=== PATIENT | female | born 1965 | race Caucasian/White ===

== ENCOUNTER 2016-05-31 11:27 | Outpatient (CLI) | payer MEDICARE, OTHER ==
[2016-05-31 11:45] LABS: BASOPHILS % 0.5 (0.0-1.5); EOSINOPHILS % 2.8 % (0.0-6.8); LYMPHOCYTES # 2.8 # k/uL (0.6-4.0); MEAN CORPUSCULAR HEMOGLOBIN 32.9 pg (28.0-34.0); MONOCYTES # 0.4 # k/uL (0.0-0.9); MONOCYTES % 3.4 % (0.0-11.0); NEUTROPHILS # 7.1 # k/uL (1.4-7.7)
--- NOTE | 2016-05-31 15:14 | Diagnostic Imaging Report ---
[facility] [address] [facility].[address] 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 The left hilum is slightly enlarged. Calcified granulomas may be present. There is no confluent infiltrate or pleural effusion. Heart size is normal. IMPRESSION: Mild hyperinflation. Left hilar enlargement. Differential diagnosis includes pulmonary hypertension and mass/lymphadenopathy. Recommend comparison to previous radiographs. If none are available, consider contrast enhanced chest CT follow-up. Electronically signed on May 31, 2016 1:13:06 PM PRODUCTION WORKER by: Peter HELLER
[2016-05-31 21:49] LABS: TOTAL PROTEIN 6.6 g/dL (6.0-8.5)
== END 2016-05-31 11:35 ==
LOC: LAB 11:27
PROVIDERS: ATTEND Family Medicine
DX: Z51.81 Encounter for therapeutic drug level monitoring (principal); R05 Cough; R63.4 Abnormal weight loss; R06.09 Other forms of dyspnea
CPT/HCPCS: 36415; 71020; 80053; 85025

== ENCOUNTER 2016-06-28 15:15 | Emergency (ER) | payer MEDICARE, OTHER ==
[2016-06-28 16:28] VITALS: BP 102/76
--- NOTE | 2016-06-28 16:57 | ED Physician Documentation ---
Upper Respiratory Symptoms - HISTORIAN Historian: patient - HPI Stated Complaint: cough, congestion Chief Complaint: Cough/ Upper Respiratory Additional Information: cough, congestion Onset: days ago (1) Duration: sudden-Onset Context: denies: recent foreign travel, insect bite(s), tick(s), recent chemotherapy, multiple patients, same sx Severity: moderate Associated Symptoms: chills, runny nose, sinus drainage, productive cough Worsened by Deep Breath: Yes Further Comments: no - ROS CONST/EYES: denies: weakness, eye redness, eye itching CVS/RESP: other (cough) LYMPH: denies: leg swelling, rash, swollen glands, ankle swelling GI/: none NEURO/PSYCH: denies: fainting, dizziness, confusion, anxiety, depression MS/SKIN: muscle aches. denies: joint pain, rash - PAST HX Lung Disease: COPD PE Risk Factors: none Other History: other (anxiety, depression, hypothyroidism) Surgeries/Procedures: none Immunizations: referred to PCP Allergies/Adverse Reactions: Allergies Allergy/AdvReac Type Severity Reaction Status Date / Time chlorpromazine HCl AdvReac Intermediate Hives Verified 06/28/16 15:32 [From Thorazine] - SOCIAL HX Smoking History: cigarettes Alcohol Use: none Drug Use: none - FAMILY HX Family History: no significant history - VITAL SIGNS Vital Signs: Vital Signs Temp Pulse Resp BP Pulse Ox 98.9 F 97 H 18 102/76 91 L 06/28/16 16:10 06/28/16 16:10 06/28/16 16:10 06/28/16 16:10 06/28/16 16:10 - REVIEWED ASSESSMENTS Nursing Assessment Reviewed: Yes Vitals Reviewed: Yes Progress - Results/Orders Results/Orders: strep and flu a/b ordered - Progress Progress: pt. stable entire tiem in er Critical Care Note - Critical Care Note Total Time (mins): 0 ED Results Lab/Radiology - Lab Results Lab Results: strep and flu b neg, flu a pos - Radiology Radiology Impressions: none ordered - Orders Orders: ED Orders Category Date Time Status INFLUENZA A&B Routine Lab 06/28/16 15:40 Ordered Strep [GRP A STREP SCREEN] Routine Lab 06/28/16 Ordered Upper Respiratory Symptoms - EXAM General Appearance: alert, moderate distress EENT: eyes nml inspection, lids & conjunct. nml, PERRL, ear nml, pain over sinuses, frontal, maxillary, mucosal edema Neck: normal inspection, thyroid normal Respiratory: no resp. distress, breath sounds nml, no pain on inspiration Abdomen: non-tender, no organomegaly, nml bowel sounds, no distention CVS: reg rate & rhythm, heart sounds normal, equal pulses, no murmur, no gallop Skin: color nml, no rash Extremities: non-tender, normal range of motion, no evidence of injury, no edema Neuro/Psych: oriented x3, neuro intact, mood/affect nml Discharge Clincal Impression: Influenza A Referrals: Thomas Tinoco MD [Primary Care Provider] - 2 Days Comments: discharged with scripts for tamiflu, claritin-d, mucinex and tessalon perles Condition: Stable Disposition: 01 HOME, SELF-CARE Decision to Admit: NO Decision Time: 16:20
== END 2016-06-28 16:10 | disposition home or self-care (01) ==
LOC: ED 15:15
DX: J11.1 Influenza due to unidentified influenza virus with other respiratory manifestations (principal)
CPT/HCPCS: 87070; 87400; 87880; 99283

== ENCOUNTER 2016-09-22 19:31 | Emergency (ER) | payer MEDICARE, OTHER ==
[2016-09-22 19:42] VITALS: BP 106/48
--- NOTE | 2016-09-22 19:51 | ED Physician Documentation ---
General Adult - HISTORIAN Historian: patient - HPI Stated Complaint: Sore Throat x 1 Month Chief Complaint: General Adult Further Comments: yes (51 year old female patient presents with complaint of sore throat for 1 month. States she is suppose to see ENT, requesting medication to make sore throat and hoarness go away.) - ROS CONST: recent illness EYES/ENT: sore throat CVS/RESP: cough GI/: none MS/SKIN/LYMPH: none NEURO/PSYCH: denies: headache, difficulty with speech - PAST HX Past History: hypertension Other History: diabetes Type 2 (hypothroidism; COPD, GERD, chronic sore throat, ) Allergies/Adverse Reactions: Allergies Allergy/AdvReac Type Severity Reaction Status Date / Time chlorpromazine HCl AdvReac Intermediate Hives Verified 09/22/16 19:42 [From Thorazine] Home Medications: Ambulatory Orders Medication Instructions Recorded Albuterol Sulfate [Proair Hfa] 2 inhalation IH Q 4-6 HRS PRN #1 09/10/16 each Diazepam [Valium] 10 mg PO SEE.INSTRUCTIONS PRN u2 09/10/16 Fluticasone/Salmeterol [Advair 1 each IH BID 09/10/16 500-50 Diskus] Haloperidol 5 mg PO BID PRN u2 09/10/16 Temazepam 15 mg PO HS PRN av 09/10/16 - SOCIAL HX Smoking History: cigarettes - FAMILY HX Family History: No - VITAL SIGNS Vital Signs: Vital Signs Temp Pulse Resp BP Pulse Ox 97.9 F 78 18 106/48 96 09/22/16 19:35 09/22/16 19:35 09/22/16 19:35 09/22/16 19:35 09/22/16 19:35 - REVIEWED ASSESSMENTS Nursing Assessment Reviewed: Yes Vitals Reviewed: Yes Progress - Progress Progress: Extensive education on sore throat - explained we did not have medication to treat negative strep and chronic sore throat in the ER, encouraged patient to use cepachol and chorasceptic spray. Encouraged patient to follow up with ENT General Adult Physical Exam - PHYSICAL EXAM GENERAL APPEARANCE: strong odor of cigarette smoke EENT: eye inspection normal, ENT inspection normal, pharynx normal (no erythema , no exudate), no signs of dehydration, XIOMARA, no nystagmus, TM's nml. 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 Warm salt water gargles as needed pain Increase your fluid intake juices, hot tea, non-caffeinated beverages If you are congested - You may want to try Vicks rub on your chest and/or feet Use a humidifier in the room where you sleep. You can also sit in a steam filled bathroom 1-2 times a day. Tylenol or Ibuprofen as needed for fever, pain and body aches. STOP SMOKING Home Medications: Ambulatory Orders Albuterol Sulfate [Proair Hfa] 2 inhalation IH Q 4-6 HRS PRN #1 each 09/10/16 Diazepam [Valium] 10 mg PO SEE.INSTRUCTIONS PRN u2 09/10/16 Fluticasone/Salmeterol [Advair 500-50 Diskus] 1 each IH BID 09/10/16 Haloperidol 5 mg PO BID PRN u2 09/10/16 Temazepam 15 mg PO HS PRN av 09/10/16 Condition: Stable Disposition: 01 HOME, SELF-CARE Decision to Admit: NO Decision Time: 20:00
== END 2016-09-22 20:05 | disposition home or self-care (01) ==
LOC: ED 19:31 → EDSTATUS 19:32 → ED 20:05
DX: J02.9 Acute pharyngitis, unspecified (principal)
CPT/HCPCS: 87070; 87880

== ENCOUNTER 2016-11-21 20:10 | Emergency (ER) | payer MEDICARE, OTHER ==
--- NOTE | 2016-11-21 20:14 | ED Physician Documentation ---
General Adult - HISTORIAN Historian: patient - HPI Stated Complaint: Knee pain, ? ETOH intox Onset: other (knee pain x 1 yr) Timing: still present Severity: moderate Further Comments: yes (Pt is a 51 yo female brought to ER to obtain ETOH level. Pt requested to see physician for long-standing problem, since she was in the ER. Pt fell on her knees one year ago and has had b/l knee pain since then. Pt has not followed up with her pcp about this in the one year interval.) - ROS CONST: other (ETOH use/intox) EYES/ENT: none CVS/RESP: none GI/: none MS/SKIN/LYMPH: other (b/l knee pain) NEURO/PSYCH: other (ETOH use) - PAST HX Past History: COPD, other (DN, HLD, Hypothyroidism, GERD, psych illness) Allergies/Adverse Reactions: Allergies Allergy/AdvReac Type Severity Reaction Status Date / Time chlorpromazine HCl AdvReac Intermediate Hives Verified 11/21/16 20:37 [From Thorazine] Home Medications: Ambulatory Orders Medication Instructions Recorded Albuterol Sulfate [Proair Hfa] 2 inhalation IH Q 4-6 HRS PRN #1 09/10/16 each Diazepam [Valium] 10 mg PO SEE.INSTRUCTIONS PRN u2 09/10/16 Fluticasone/Salmeterol [Advair 1 each IH BID 09/10/16 500-50 Diskus] Haloperidol 5 mg PO BID PRN u2 09/10/16 Temazepam 15 mg PO HS PRN av 09/10/16 - SOCIAL HX Smoking History: cigarettes Alcohol Use: occasionally - FAMILY HX Family History: No - VITAL SIGNS Vital Signs: Vital Signs Temp Pulse Resp BP Pulse Ox 106/48 09/22/16 20:05 - REVIEWED ASSESSMENTS Nursing Assessment Reviewed: Yes Vitals Reviewed: Yes Progress - Progress Progress: CHERY wrap knees b/l & f/u pcp for knee pain x 1 yr. ETOH obtained by law enforcement. Pt d/c'd with law enforcement. General Adult Physical Exam - PHYSICAL EXAM GENERAL APPEARANCE: appears intoxicated EENT: pharynx normal NECK: normal inspection, supple RESPIRATORY: no resp distress, chest non-tender, other (distant breath sounds) CVS: reg rate & rhythm, heart sounds normal ABDOMEN: soft, no organomegaly, normal bowel sounds BACK: normal inspection, no CVA tenderness SKIN: warm/dry, normal color EXTREMITIES: normal range of motion, no evidence of injury, other (knees FROM, no ligamentous instability b/l) NEURO: oriented X3, motor nml, sensation nml, other (appears intoxicated) Discharge Clincal Impression: ETOH assessment, law enforcement, knee pain x 1 yr Referrals: Thomas Tinoco MD [Primary Care Provider] - Home Medications: Ambulatory Orders Albuterol Sulfate [Proair Hfa] 2 inhalation IH Q 4-6 HRS PRN #1 each 09/10/16 Diazepam [Valium] 10 mg PO SEE.INSTRUCTIONS PRN u2 09/10/16 Fluticasone/Salmeterol [Advair 500-50 Diskus] 1 each IH BID 09/10/16 Haloperidol 5 mg PO BID PRN u2 09/10/16 Temazepam 15 mg PO HS PRN av 09/10/16 Condition: Stable Disposition: 01 HOME, SELF-CARE Decision to Admit: NO Decision Time: 21:20
[2016-11-21 20:36] VITALS: BP 126/78
== END 2016-11-21 20:38 | disposition home or self-care (01) ==
LOC: ED 20:10
DX: M25.569 Pain in unspecified knee (principal)
CPT/HCPCS: 99283

== ENCOUNTER 2017-06-14 14:57 | Outpatient (CLI) | payer MEDICARE, OTHER ==
[2017-06-14 15:47] LABS: eGFR (African) > 60; eGFR (Non-African) > 60
== END 2017-06-14 15:00 ==
LOC: LAB 14:57
PROVIDERS: ATTEND Family Medicine
DX: E03.9 Hypothyroidism, unspecified (principal); E11.9 Type 2 diabetes mellitus without complications; Z51.81 Encounter for therapeutic drug level monitoring
CPT/HCPCS: 36415; 80053; 83036; 84443

== ENCOUNTER 2017-10-08 14:28 | Outpatient (CLI) | payer MEDICARE, OTHER | END 2017-10-08 14:30 | LOC: LABRHC 14:28 | PROVIDERS: ATTEND Family Medicine | DX: N76.0 Acute vaginitis (principal) | CPT/HCPCS: 87491; 87591 ==

== ENCOUNTER 2019-04-15 14:22 | Outpatient (CLI) | payer MEDICARE, OTHER ==
--- NOTE | 2019-04-15 17:29 | Diagnostic Imaging Report ---
PATIENT MR#: [id number] PATIENT PATIENT NAME: CRISTHIAN SAMUELS DATE OF : 1965 REFERRING PHYSICIAN: Thomas Tinoco EXAM DATE: 04/15/2019 ACCESSION NUMBER: [id number] EXAM DESCRIPTION: CHEST 2VIEW HISTORY: COUGH/WHEEZING/HEAVY SMOKER. COMPARISON: None provided. CHEST RADIOGRAPH, FRONTAL AND LATERAL: Upper mediastinum: Not widened. Heart: No cardiomegaly. Lungs: No lobar infiltrate, pulmonary edema, pneumothorax or significant effusion. Skeleton: Mild thoracic hyperkyphosis without acute compression fracture. IMPRESSION: No acute thoracic process. Read by: Dr. Matthew Lee Transcribed by: Matthew Lee Transcribed Date: 04/15/2019 5:27:40 PM Electronically signed by: Dr. Matthew Lee Date signed: 04/15/2019 5:28:21 PM
== END 2019-04-15 14:32 ==
LOC: RAD 14:22
PROVIDERS: ATTEND Family Medicine
DX: E03.9 Hypothyroidism, unspecified (principal); J43.1 Panlobular emphysema
CPT/HCPCS: 36415; 71046; 84439; 84443